=== PATIENT | male | born 1980 | race Two or more races ===

== ENCOUNTER 2016-08-02 16:05 | Emergency (ER) | payer OTHER ==
[2016-08-02 16:10] VITALS: TEMP 97.7
--- NOTE | 2016-08-02 16:48 | EDPHY ---
HPI/HX/ROS/PE/MDM Narrative: Chief complaint: Left hip and leg pain status post tubing accident HPI: 36-year-old male [place] inner tubing [place] the [place] when he stuck his legs out to try to stop himself and struck his left foot on a rock with a straight leg. Patient had immediate onset of pain in his left upper thigh and pelvis. He has been ambulating with pain. No prior injuries to the same area. No numbness or weakness. No pain below his knee. No back pain. Did not his head. No loss of conscious. No chest or abdominal pain. ROS: 10 point Review of Systems is negative except as noted in the HPI. Physical exam: Gen: Awake, Alert, Airway Intact HEENT: Head: Atraumatic Eyes: PERRLA, EOMI Nose: No epistaxis Mouth: Normal dentition, Airway patent Face: No deformity Neck: non-tender, no stepoff, Full ROM without pain Chest: non-tender, lungs CTA Heart: normal heart tones Abd: soft, non-tender, atraumatic Pelvis: Moderate tenderness to his lateral hip, stable to AP and Lateral compression, some pubic tenderness to palpation without for Back: atraumatic, no midline tenderness Ext: Left hip with lateral and anterior tenderness with some, leg is not shortened or rotated. Sensations intact. He has 2+ DP and PT pulses. Cap refills less than 2 seconds. Skin: no rash Neuro: CN II-XII intact, Strength 5/5 in all extremities, sensation intact in all extremities ED Course: Pelvis x-ray: No acute bony injury per my interpretation. Left femur x-ray: No acute bony injury per my interpretation. Patient sustained a left hip strain status post inner tubing accident today. There is no obvious deformities on x-ray at this time. Will discharge with oral analgesia and follow up with primary care physician in 2-3 days. General Time Seen by Provider: 08/02/16 16:22 Initial Vital Signs: Initial Vital Signs Temperature (C) 36.5 C 08/02/16 16:09 Heart Rate 92 08/02/16 16:09 Respiratory Rate 18 08/02/16 16:09 Blood Pressure 110/71 08/02/16 16:09 O2 Sat (%) 94 08/02/16 16:09 O2 Delivery Mode Room Air Allergies/Adverse Reactions: No Known Allergies Allergy (Unverified 08/02/16 16:09) Home Medications: Medication Instructions Recorded NK [No Known Home Meds] 08/02/16 Departure - Departure Disposition: Home, Routine, Self-Care Clinical Impression: Hip pain Condition: Good Instructions: Hip Pain (ED) Additional Instructions: You may take ibuprofen and acetaminophen for pain. Follow up with primary care in 3-4 days if not improving. Return for increasing pain, numbness, weakness, fevers, chills, or any other concerns. Referrals: Rachelle Escalona MD [Medical Doctor] - As per Instructions
--- NOTE | 2016-08-02 17:05 | DX ---
Pelvis - single view dated August 02, 2016 Indication: Left hip pain. Trauma. Findings: The pelvis is anatomically aligned. No acute fracture or dislocation. Surgical clips overli e the right hemipelvis and pubic symphysis. Sacroiliac joints and bilateral hip joints are well-prese rved. Impression: Negative. No acute fracture.
[2016-08-02 17:08] VITALS: BP 129/76; PULSE 68; RESP 16; O2SAT 96
--- NOTE | 2016-08-02 17:10 | DX ---
Left femur - 4 views dated August 02, 2016 Indication: Pain. Trauma. Technique: AP and lateral views of the left femur. Findings: The bones are anatomically aligned. No acute fracture or dislocation. No knee effusion. Impression: Negative. No acute fracture.
== END 2016-08-02 17:08 | disposition home or self-care (01) ==
DX: S79.912A Unspecified injury of left hip, initial encounter (principal); W22.8XXA Striking against or struck by other objects, initial encounter; Y93.89 Activity, other specified